=== PATIENT | male | born 1995 | race Caucasian/White ===

== ENCOUNTER 2017-05-13 00:26 | Emergency (ER) | payer SELFPAY ==
[2017-05-13 00:37] VITALS: BP 112/67
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
== END 2017-05-13 02:05 | disposition home or self-care (01) ==
LOC: ED 00:26
DX: F10.129 Alcohol abuse with intoxication, unspecified (principal); R11.10 Vomiting, unspecified
CPT/HCPCS: 99282